=== PATIENT | female | born 1980 | race African-American/Black ===

== ENCOUNTER 2019-05-09 07:21 | Emergency (ER) | payer MEDICAID ==
[~2019-05-09] VITALS: Ht 167.6 cm; Wt 63.3 kg
[2019-05-09 08:05] VITALS: BP 141/96
== END 2019-05-09 09:15 | disposition home or self-care (01) ==
LOC: ER 07:21
DX: T16.2XXA Foreign body in left ear, initial encounter (principal); W22.8XXA Striking against or struck by other objects, initial encounter; Y93.89 Activity, other specified; Y92.89 Other specified places as the place of occurrence of the external cause; Y99.8 Other external cause status